=== PATIENT | female | born 1990 | race American Indian/Alaskan Native ===

== ENCOUNTER 2017-07-02 08:52 | Outpatient (CLI) | payer MEDICAID ==
[2017-07-02 10:10] LABS: Bacteria,Urine 1+ /HPF (Negative); Bilirubin,Urine NEG (Negative); Blood,Urine NEG (Negative); Color,Urine Yellow (Yellow); Hyaline Casts,Urine 3 /LPF; Mucus,Urine FEW /HPF; Protein,Urine <15 mg/dL mg/dL (Negative); Urobilinogen,Urine < 2.0 mg/dL (<2.0)
[2017-07-02 11:03] VITALS: BP 120/81
--- NOTE | 2017-07-02 14:16 | Ultrasound Report ---
COMPLETE OB ULTRASOUND: well-being Gestation: [place]le Position: Cephalic PUMA = 17.5 cm Placenta: Right lateral, posterior Placental Grade: 1 Heart Rate: 156 BPM BPD: 9.1 cm = 36 w 5 d HC: 33.1 cm = 37 w 4 d AC: 35 cm = 38 w 6 d FL: 7.5 cm = 38 w 3 d HC/AC Ratio: 1.0 Cephalic Index: 79.0 Estimated Weight: 3467 grams Clinical age = 38 w 3 d EDC: 07/13/2017 US Gest. Age = 37 w 6 d EDC: 07/17/2017
--- NOTE | 2017-07-02 14:17 | Ultrasound Report ---
BIOPHYSICAL PROFILE: well being 2 - breathing movements 2 - movements 2 - posture and tone 2 - Qualitative amniotic fluid volume 8 - TOTAL SCORE OF POSSIBLE 8 Heart Rate (bpm) 156
== END 2017-07-02 12:40 | disposition home or self-care (01) ==
LOC: TRG 08:52
PROVIDERS: ATTEND Obstetrics & Gynecology
DX: O47.1 False labor at or after 37 completed weeks of gestation (principal); Z3A.38 38 weeks gestation of pregnancy
CPT/HCPCS: 59025; 76816; 76819; 81001

== ENCOUNTER 2017-07-02 20:37 | Inpatient (IN) | payer MEDICAID ==
[2017-07-02] MEDS ORDERED: PITOCin/NS 20 UNIT/1000ML DRIP 20,000 MILLIUNITS/1,000 ML BAG IV ONE (21:24)
[2017-07-02 21:53] LABS: Hemoglobin 8.1 gm/dl (10.1-14.3); Mean Corpuscular HGB Conc 30 % (30-34); Platelet Count 178 K/mm3 (140-440); Red Blood Count 4.12 M/mm3 (3.65-5.03)
[2017-07-02 21:59] LABS: Mean Corpuscular Hemoglobin 20 pg (28-32); Mean Corpuscular Volume 65 fl (79-97); Red Cell Distribution Width 20.2 % (13.2-15.2)
[2017-07-02] MEDS ORDERED: PITOCin/NS 20 UNIT/1000ML DRIP 20 UNITS/1,000 ML BAG IV SCH (22:00)
[2017-07-02] MEDS ORDERED: LACTATED RINGERS 1,000 ML IV SCH (22:00)
[2017-07-02] MEDS ORDERED: NORCO 5/325 PO ONE (22:16)
--- NOTE | 2017-07-02 23:10 | History and Physical Report ---
History of Present Illness Date of examination: 07/02/17 Date of admission: 07/02/17 21:02 Chief complaint: CONTRACTIONS History of present illness: PATIENT IS A26 YEAR OLD WHO PRESENTS WITH CONTRACTIONS AND ACTIVE LABOR AT 38.4 weeks. COURSE COMPLICATED BY LATE PRESENTATION TO CARE. Past History - Obstetrical History Expected Date of Delivery: 07/13/17 Actual Gestation: 38 Week(s) 3 Day(s) : 3 Number of Living Children: 2 Medications and Allergies Allergies Allergy/AdvReac Type Severity Reaction Status Date / Time No Known Allergies Allergy Unverified 07/02/17 09:04 Home Medications Medication Instructions Recorded Confirmed Last Taken Type One Daily Tablet 1 tab PO DAILY 07/02/17 07/02/17 07/02/17 History Active Meds: Active Medications Lactated Ringer's (Lactated Ringers) 1,000 mls @ 125 mls/hr IV DIRECT MOE Oxytocin/Sodium Chloride (Pitocin/Ns 20 Unit/1000ml Drip) 20 units in 1,000 mls @ 125 mls/hr IV DIRECT MOE - Vital Signs Vital signs: Vital Signs Temp Resp 98.7 F 22 07/02/17 21:09 07/02/17 21:09 Temp Pulse Resp BP Pulse Ox 98.2 F 82 20 128/68 99 07/02/17 22:00 07/02/17 22:58 07/02/17 22:26 07/02/17 22:58 07/02/17 22:56 - Physical Exam Breasts: Cardiovascular: Regular rate, Normal S1, Normal S2 Lungs: Positive: Clear to auscultation, Normal air movement Abdomen: Positive: normal appearance, soft, normal bowel sounds. Negative: distention, tenderness Vulva: both: normal Vagina: Positive: normal moisture. Negative: discharge Cervix: Negative: lesion, discharge Uterus: Positive: normal size, normal contour Adnexa: both: normal Anus/Rectum: Positive: normal perianal skin, heme negative. Negative: rectal mass, hemorrhoids Extremities: Deep Tendon Reflex Grade: Normal +2 - Obstetrical Cervical Dilatation: 8 Cervical Effacement Percentage: 100 Uterine Contraction Frequency (min): 3 Uterine Contraction Pattern: Regular Results Result Diagrams: 07/02/17 21:15 Abnormal lab results 07/02/17 Range/Units 21:15 WBC 11.8 H (4.5-11.0) K/mm3 Hgb 8.1 L (10.1-14.3) gm/dl Hct 27.0 L (30.3-42.9) % MCV 65 L (79-97) fl MCH 20 L (28-32) pg RDW 20.2 H (13.2-15.2) % All other labs normal.
--- NOTE | 2017-07-02 23:12 | Procedure Note ---
OB Delivery Note - Delivery Date of Delivery: 07/02/17 Surgeon: ABI ESTEBAN Estimated blood loss: 200cc - Vaginal Delivery presentation: vertex Delivery position: OA Intrapartum events: precipitous labor- <3hr Delivery induction: none Delivery monitor: external FHT, external uterine Route of delivery: Delivery placenta: spontaneous Delivery cord: 3 umbilical vessels Delivery laceration: 1st degree - Infant A at 1 minute: 8 at 5 minutes: 9 Gender: Female (7 POUNDS 0 OUNCES)
[2017-07-02] MEDS ORDERED: NORCO 5/325 PO PRN (23:27)
[2017-07-02] MEDS ORDERED: TYLENOL PO PRN (23:27)
[2017-07-02] MEDS ORDERED: PHENERGAN PR PRN (23:27)
[2017-07-02] MEDS ORDERED: MILK OF MAGNESIA PO PRN (23:27)
[2017-07-02] MEDS ORDERED: ZOFRAN IV PRN (23:27)
[2017-07-02] MEDS ORDERED: BENADRYL PO PRN (23:27)
[2017-07-02] MEDS ORDERED: LANSINOH TP PRN (23:27)
[2017-07-02] MEDS ORDERED: TUCKS PAD TP PRN (23:27)
[2017-07-02] MEDS ORDERED: PHENERGAN PO PRN (23:27)
[2017-07-02] MEDS ORDERED: DULCOLAX PR PRN (23:27)
[2017-07-02] MEDS ORDERED: TORADOL IV PRN (23:27)
[2017-07-02] MEDS ORDERED: SODIUM CHLORIDE FLUSH SYRINGE 10 ML IV NR (23:45)
[2017-07-03] MEDS: MOTRIN PO SCH ×3 (00:27→23:37)
[2017-07-03] MEDS ORDERED: BOOSTRIX IM ONE (06:00)
[2017-07-03] MEDS: COLACE PO SCH ×2 (10:30→23:37)
[2017-07-03] MEDS: PRENATAL VITAMIN PO SCH (10:31)
[2017-07-03 12:37] LABS: Hematocrit 26.1 % (30.3-42.9); Hemoglobin 8.2 gm/dl (10.1-14.3)
[2017-07-04] MEDS: MOTRIN PO SCH ×4 (05:53→22:43)
[2017-07-04] MEDS: PRENATAL VITAMIN PO SCH (10:15)
[2017-07-04] MEDS: COLACE PO SCH (10:15)
[2017-07-05 01:11] VITALS: BP 114/69
== END 2017-07-04 23:45 | disposition home or self-care (01) | DRG 775 ==
LOC: TRG 20:37 → LD 21:02 → TRG 21:02 → OB 23:22
PROVIDERS: ADMIT Obstetrics & Gynecology; ATTEND Obstetrics & Gynecology
PROC: 10E0XZZ Delivery of Products of Conception, External Approach (ICD-10-PCS; principal; 2017-07-02)
PROC: 3E0234Z Introduction of Serum, Toxoid and Vaccine into Muscle, Percutaneous Approach (ICD-10-PCS; 2017-07-03)
DX: O62.3 Precipitate labor (principal); O70.0 First degree perineal laceration during delivery; Z3A.38 38 weeks gestation of pregnancy; Z37.0 Single live birth; Z23 Encounter for immunization
CPT/HCPCS: 36415; 85014; 85018; 85027; 86592; 86850; 86900; 86901; 90471; 90715; 99211; G0463; J2590